=== PATIENT | female | born 1940 | race Caucasian/White ===

== ENCOUNTER 2025-05-01 08:11 | Inpatient (IN) ==
--- NOTE | 2025-05-01 08:50 | Emergency Department Note ---
Impression & Plan Acute hypoxic respiratory failure, Cystitis, URI (upper respiratory infection) ED Provider Note NAME: TRELL SAAB AGE: 84 SEX: F : 1940 ARRIVES VIA: Ambulance INFORMANT: Patient, ED PROVIDER(S): Leah Sexton MD CHIEF COMPLAINT: Shortness of breath, cough HPI: This is a an 84-year-old male female presenting for shortness of breath and cough. Patient noted feeling ill over the past 2 days with a cough and shortness of breath. She had a fever at home prior to arrival. She given Tylenol. She was reported to be hypoxic to 85% on room air as per EMS. She reports feeling better at this time after receiving oxygen. She reports no nausea or vomiting. No chest pain. No pleurisy. ROS: See above HPI for pertinent positives & negatives. A total of 10 systems reviewed and were otherwise negative. PAST MEDICAL HISTORY: See Below PAST SURGICAL HISTORY: See Below FAMILY HISTORY: See Below SOCIAL HISTORY: See Below HOME MEDICATIONS: See Below ALLERGIES: See Below VITALS: See Below PHYSICAL EXAMINATION: General: resting comfortably in no acute distress Head: Normocephalic and atraumatic Eyes: Normal inspection, extraocular muscles intact Ear, nose, throat: Normal external exam Neck: Normal range of motion Respiratory: lungs clear to auscultation bilaterally Cardiovascular: Regular rate/rhythm, no murmur GI: soft, nontender, no guarding or rebound Extremities: nontender, moves all extremities Neuro: The patient awake and alert, appropriately conversive, no focal deficits, symmetric faces Skin: Warm, dry, and intact MEDICAL DECISION MAKING: This is a pleasant 84-year-old male presenting for shortness of breath and UTI symptoms. Patient notes that she has been feeling ill with cough and shortness of breath. She reports a fever at home. She think she may have a UTI due to dysuria. Will do screening workup, x-ray, upper respiratory panel - Blood work reviewed without significant leukocytosis, anemia or electrolyte disturbance. - Upper respiratory panel negative - Urinalysis positive for UTI. Will give cefepime for this based on discussion with pharmacist/previous culture data - Patient's chest x-ray unrevealing. Hypoxia without clear cause. Will proceed to CTA to rule out PE due to shortness of breath - CTA currently negative. Patient made aware of her chronic incidental findings and need for follow-up with PCP for further imaging - Will with the patient for significant hypoxia, UTI - Care discussed with Dr. Fan for admission Differential diagnosis: Pneumonia, URI, sepsis, cystitis Diagnostics interpreted by me: ECG: ECG independently interpreted by me with normal sinus rhythm, rate of 92, normal axis, normal NM, normal QRS, normal QTc, no ST segment elevations consistent with STEMI criteria Cardiac Monitoring: An order was placed for continuous cardiac monitoring. The monitor shows a rate of 82 with sinus rhythm. Past Med/Surg History Problem List (Updated 04/17/25 @ 00:09 by S[employer] Daemcece) URI (upper respiratory infection) (Acute) Cystitis (Acute) DM type 2 (diabetes mellitus, type 2) Acute hypoxic respiratory failure (Acute) Sepsis (Acute) Acute pyelonephritis (Acute) Acute exacerbation of chronic obstructive airways disease (Acute) Overactive bladder Nocturia History of adenomatous polyp of colon (Chronic) "colonoscopy 09/13/13 tubular adenoma ascending colon" Constipation Status post lumbar surgery (Chronic) "[facility] 12/23/11 Dr. Nesbitt lumbar decompression + fusion" On 09/05/13 17:11 Marty Carolina wrote "[facility] Dr. Nesbitt 12/23/11 lumbar decompression + fusion" Status post cataract extraction (Chronic) Status post dilatation and curettage (Chronic) Status post hysterectomy (Chronic) Status post total knee replacement (Chronic) Medical History (Updated 05/01/25 @ 15:17 by Leah Sexton MD) Neck pain Social History Smoking Status: Former smoker Tobacco Type: Cigarettes Do You Dip or Chew Tobacco: No; Hx Alcohol Use: No Hx Substance Use: No Preferred Language: Greek Communication Ability: Effective Sports Agent Required: No Beliefs That Will Affect Care: None Current Living Situation: Assisted Current Living Situation Comment: [place] care resident Feels Safe at Home: Yes Assistive Devices: Scooter/Electric Scooter and Walker Allergies Allergies Allergy/AdvReac Type Severity Reaction Status Date / Time bee venom protein (honey bee) Allergy Severe anaphylaxis Verified 04/11/25 18:38 levofloxacin Allergy Severe HIVES AND Verified 04/11/25 18:38 ITCHING,FACE SWELLING Penicillins Allergy Severe PT STATES Verified 04/11/25 18:38 THROAT SWELLS tiotropium Allergy Severe THROAT Verified 04/11/25 18:38 SWELLED adhesive Allergy Mild red skin Verified 04/11/25 18:38 cyclobenzaprine Allergy Mild RASH Verified 04/11/25 18:38 cyclopentolate Allergy Mild rash Verified 04/11/25 18:38 povidone-iodine Allergy Mild rash Verified 04/11/25 18:38 Sulfa (Sulfonamide Allergy Mild RASH Verified 04/11/25 18:38 Antibiotics) amoxicillin Allergy Unknown Unknown Verified 04/11/25 18:38 azithromycin Allergy Unknown Unknown Verified 04/11/25 18:38 Benzodiazepines Allergy Unknown per pt, Verified 04/11/25 18:38 tolerates Ativan fexofenadine Allergy Unknown Unknown Verified 04/11/25 18:38 latex Allergy Unknown doesn't Verified 04/11/25 18:[address] told her so phenylephrine Allergy Unknown UNKNOWN-PER Verified 04/11/25 18:38 HOSPITAL ADMISSION 09/05/13-09/15/13 nitrofurantoin Allergy Anaphylaxis Verified 04/15/25 11:00 [From Macrobid] daptomycin AdvReac Intermediate ABDOMINAL Verified 04/11/25 18:38 PAIN fentanyl AdvReac Intermediate nausea and Verified 04/11/25 18:38 vomiting gabapentin AdvReac Intermediate increased Verified 04/11/25 18:38 pain pentobarbital AdvReac Intermediate SEDATED Verified 04/11/25 18:38 simvastatin AdvReac Intermediate MUSCLE PAIN Verified 04/11/25 18:38 Home Meds Home Medications Medication Instructions Recorded Confirmed valsartan 80 mg tablet 80 mg PO DAILY 08/10/24 04/11/25 Saccharomyces boulardii 250 mg 250 mg PO BID 11/18/24 04/11/25 capsule (Florastor) acetaminophen 325 mg tablet 650 mg PO Q6H PRN PAIN/TEMP >100F 11/18/24 04/11/25 (Tylenol) carboxymethylcellulose sodium 1 % 1 drp ophthalmic (eye) BID 11/18/24 04/11/25 eye liquid gel drops (Refresh Liquigel) docusate sodium 100 mg capsule 100 mg PO DAILY 11/18/24 04/11/25 ergocalciferol (vitamin D2) 50 mcg 50 mcg PO DAILY 11/18/24 04/11/25 (2,000 unit) capsule loperamide 2 mg capsule (Imodium 2 mg PO Q4H PRN Diarrhea 11/18/24 04/11/25 A-D) acetaminophen 650 mg 650 mg PO BIDM 04/11/25 04/11/25 tablet,extended release (Tylenol Arthritis Pain) albuterol sulfate 90 mcg/actuation 2 puff inhalation Q6H PRN 04/11/25 04/11/25 aerosol inhaler Shortness Of Breath Or Wheezing aluminum-mag hydroxide-simethicone 60 ml PO Q6H PRN Dyspepsia 04/11/25 04/11/25 200 mg-200 mg-20 mg/5 mL oral susp (No-[place]) bacitracin 500 unit/gram topical 1 applic topical DAILY 04/11/25 04/11/25 ointment calcium carbonate 1,000 mg PO Q1H PRN Indigestion 04/11/25 04/11/25 carboxymethylcellulose sodium 1 % 2 drp OPB Q2H PRN Dry Eyes 04/11/25 04/11/25 eye drops (Artificial Tears (carboxymethylcellulose)) clotrimazole 1 % topical cream 1 applic topical BID 04/11/25 04/11/25 epinephrine 0.3 mg/0.3 mL 0.3 mg IM DIRECTED PRN Allergic 04/11/25 04/11/25 injection, auto-injector (EpiPen) Reaction fluticasone furoate 27.5 2 spray intranasal DAILY 04/11/25 04/11/25 mcg/actuation nasal spray,suspension glimepiride 4 mg tablet 4 mg PO BIDM 04/11/25 04/11/25 guaifenesin 600 mg tablet, 600 mg PO Q12H 04/11/25 04/11/25 extended release 12 hr (Mucinex) menthol 0.8 % topical powder (Gold 1 ea topical BID 04/11/25 04/11/25 Avendano Medicated Body) mineral oil 2 ea miscellaneous DIRECTED 04/11/25 04/11/25 mupirocin 2 % topical ointment 1 applic topical TID 04/11/25 04/11/25 ondansetron 4 mg disintegrating 4 mg PO Q6H PRN NAUSEA/VOMITING 04/11/25 04/11/25 tablet phenol 1.4 % mucosal aerosol spray 2 spray mucous membrane Q8H PRN 04/11/25 04/11/25 Sore Throat polyethylene glycol 3350 17 17 g PO DAILY 04/11/25 04/11/25 gram/dose oral powder (Miralax) saliva stimulant comb. no.3 2 spray mucous membrane Q1H PRN 04/11/25 04/11/25 (Biotene Moisturizing Mouth Dry Mouth mucosal spray) semaglutide 0.25 mg or 0.5 mg (2 0.5 mg subcut WK 04/11/25 04/11/25 mg/3 mL) subcutaneous pen injector (Ozempic) soap 1 ea topical QPM 04/11/25 04/11/25 tramadol 50 mg tablet 50 mg PO Q4H PRN PAIN/SEVERE 04/11/25 04/11/25 triamcinolone acetonide 0.1 % 1 applic topical BID 04/11/25 04/11/25 topical cream vitamin E 268 mg (400 unit) capsule 268 mg PO DAILY 04/11/25 04/11/25 Previous Rx's Medication Instructions Recorded vibegron 75 mg tablet (Gemtesa) 75 mg PO DAILY #30 tabs 09/10/24 diclofenac sodium 1 % topical gel 4 g EXT QID Apply to right side of 04/15/25 (Voltaren Arthritis Pain) neck #100 grams Results & Data (ED) Vital Signs Vital Signs - 24 hr 05/01/25 08:17 05/01/25 08:23 05/01/25 08:30 Temperature 37.2 C Temperature Source Oral Pulse Rate 81 87 83 Pulse Rate from SpO2 Sensor Pulse Rhythm Regular Respiratory Rate 20 22 Respiratory Effort / Characteristics Non-Labored Spontaneous Respiratory Depth Normal Respiratory Pattern Regular Blood Pressure 116/62 Blood Pressure Mean 80 Pulse Oximetry 85 L 95 Oxygen Delivery Method Room Air Nasal Cannula Oxygen Flow Rate 4 Sepsis Recent Fever Within 48 Hours Yes Sepsis New/Unexplained Change in Mental Status No Sepsis Action Taken by Nursing No Action Required 05/01/25 08:42 05/01/25 09:01 05/01/25 09:30 Temperature Temperature Source Pulse Rate 90 82 75 Pulse Rate from SpO2 Sensor Pulse Rhythm Respiratory Rate 17 18 18 Respiratory Effort / Characteristics Respiratory Depth Respiratory Pattern Blood Pressure 123/71 138/72 149/76 H Blood Pressure Mean 91 103 108 Pulse Oximetry 96 95 93 Oxygen Delivery Method Nasal Cannula Nasal Cannula Nasal Cannula Oxygen Flow Rate 4 4 4 Sepsis Recent Fever Within 48 Hours Sepsis New/Unexplained Change in Mental Status Sepsis Action Taken by Nursing 05/01/25 10:01 05/01/25 10:51 05/01/25 11:30 Temperature Temperature Source Pulse Rate 81 82 89 Pulse Rate from SpO2 Sensor Pulse Rhythm Respiratory Rate 17 13 17 Respiratory Effort / Characteristics Respiratory Depth Respiratory Pattern Blood Pressure 138/78 136/66 Blood Pressure Mean 113 95 Pulse Oximetry 100 99 99 Oxygen Delivery Method Nasal Cannula Nasal Cannula Nasal Cannula Oxygen Flow Rate 4 4 4 Sepsis Recent Fever Within 48 Hours Sepsis New/Unexplained Change in Mental Status Sepsis Action Taken by Nursing 05/01/25 11:30 05/01/25 12:00 05/01/25 12:31 Temperature Temperature Source Pulse Rate 80 78 77 Pulse Rate from SpO2 Sensor Pulse Rhythm Respiratory Rate 17 15 Respiratory Effort / Characteristics Respiratory Depth Respiratory Pattern Blood Pressure 136/66 132/79 Blood Pressure Mean 95 97 Pulse Oximetry 99 99 Oxygen Delivery Method Nasal Cannula Oxygen Flow Rate 4 Sepsis Recent Fever Within 48 Hours Sepsis New/Unexplained Change in Mental Status Sepsis Action Taken by Nursing 05/01/25 12:31 05/01/25 13:01 05/01/25 13:31 Temperature Temperature Source Pulse Rate 84 78 72 Pulse Rate from SpO2 Sensor 83 Pulse Rhythm Respiratory Rate 14 17 13 Respiratory Effort / Characteristics Respiratory Depth Respiratory Pattern Blood Pressure 169/87 H 170/91 H 156/113 H Blood Pressure Mean 125 125 125 Pulse Oximetry 100 100 100 Oxygen Delivery Method Nasal Cannula Nasal Cannula Nasal Cannula Oxygen Flow Rate 4 4 4 Sepsis Recent Fever Within 48 Hours Sepsis New/Unexplained Change in Mental Status Sepsis Action Taken by Nursing 05/01/25 14:30 Temperature Temperature Source Pulse Rate 82 Pulse Rate from SpO2 Sensor Pulse Rhythm Respiratory Rate 20 Respiratory Effort / Characteristics Respiratory Depth Respiratory Pattern Blood Pressure 119/88 Blood Pressure Mean 111 Pulse Oximetry 99 Oxygen Delivery Method Nasal Cannula Oxygen Flow Rate 4 Sepsis Recent Fever Within 48 Hours Sepsis New/Unexplained Change in Mental Status Sepsis Action Taken by Nursing Laboratory Data 05/01/25 08:30 05/01/25 08:30 Lab Results 05/01/25 05/01/25 Range/Units 08:30 11:33 WBC 8.50 (4.8-10.8) K/ul RBC 4.56 (4.20-5.40) M/uL Hgb 14.0 (12.0-16.0) g/dL Hct 44.0 (37.0-47.0) % MCV 96.5 (80.0-100.0) fL MCH 30.7 (25.0-34.0) pg MCHC 31.8 L (32.0-36.0) g/dL RDW Std Deviation 50.4 H (36.4-46.3) fL RDW Coeff of Yvonne 14.3 (11.5-14.5) % Plt Count 198 (130-400) K/uL MPV 9.7 (9.4-12.4) fL Immature Gran % (Auto) 0.5 % Neut % (Auto) 74.7 % Lymph % (Auto) 18.5 % [place] % (Auto) 5.8 % Eos % (Auto) 0.0 % Baso % (Auto) 0.5 % Neut # (Auto) 6.36 (1.40-6.50) K/uL Lymph # (Auto) 1.57 (1.20-3.40) K/uL [place] # (Auto) 0.49 (0.11-0.59) K/uL Eos # (Auto) 0.00 (0.00-0.50) K/uL Baso # (Auto) 0.04 (0.00-0.20) K/uL Immature Gran # (Auto) 0.04 (0.01-0.20) K/uL Sodium 139 (136-145) mmol/L Potassium 4.2 (3.5-5.1) mmol/L Chloride 99 (98-107) mmol/L Carbon Dioxide 33 H (21-32) mmol/L Anion Gap 7 (3-11) BUN 12 (6-23) mg/dl Creatinine 0.69 (0.6-1.2) mg/dl Est Cr Clr Drug Dosing 77.6 ml/min eGFR 86.06 BUN/Creatinine Ratio 17.4 (10-20) Glucose 86 (70-99(Fasting)) mg/dl Lactate 1.6 (0.4-2.0) mmol/L Calcium 8.4 L (8.6-10.3) mg/dl Magnesium 1.8 (1.7-2.4) mg/dl Total Bilirubin 0.7 (0.2-1.0) mg/dl Direct Bilirubin 0.1 (0-0.2) mg/dl AST 16 (13-39) U/L ALT 11 (7-52) U/L Alkaline Phosphatase 90 (34-104) U/L Troponin I High Sens 14.7 H (0-14) pg/ml Total Protein 6.6 (6.0-8.3) gm/dl Albumin 3.6 (3.4-5.0) gm/dl Procalcitonin 0.03 (0-0.5) ng/ml Urine Color Yellow Urine Appearance Cloudy A (Clear) Urine pH 5.5 (4.5-7.5) Ur Specific [place] 1.015 (1.000-1.030) Urine Protein Negative (Negative) Urine Glucose (UA) Negative (Negative) Urine Ketones Negative (Negative) Urine Blood Negative (Negative) Urine Nitrite Negative (Negative) Urine Bilirubin Negative (Negative) Urine Urobilinogen Negative (Negative) Ur Leukocyte Esterase 3+ H (Negative) Urine WBC (Auto) >50 H (0-5) /hpf Urine RBC (Auto) 0-2 (0-2) /hpf U Hyaline Cast (Auto) 3-5 H (0-2) /lpf U Epithel Cells (Auto) 0-2 (0-2) /hpf Urine Bacteria (Auto) 2+ H (None Seen) Urine Comment Adenovirus (PCR) Not Detected (NotDetected) B. pertussis DNA (PCR) Not Detected (NotDetected) B.parapertussis DNA PCR Not Detected (NotDetected) C. pneumoniae DNA (PCR) Not Detected (NotDetected) Coronavirus OC43 (PCR) Not Detected (NotDetected) Coronavirus HKU1 (PCR) Not Detected (NotDetected) Coronavirus 229E (PCR) Not Detected (NotDetected) SARS-CoV-2 (PCR) Not Detected (NotDetected) Coronavirus NL63 (PCR) Not Detected (NotDetected) Human Metapneumovir PCR Not Detected (NotDetected) Influenza Type A (PCR) Not Detected (NotDetected) Influenza Type B (PCR) Not Detected (NotDetected) M. pneumoniae (PCR) Not Detected (NotDetected) Parainfluenza 1 (PCR) Not Detected (NotDetected) Parainfluenza 2 (PCR) Not Detected (NotDetected) Parainfluenza 3 (PCR) Not Detected (NotDetected) Parainfluenza 4 (PCR) Not Detected (NotDetected) RSV (PCR) Not Detected (NotDetected) Entero/Rhino (PCR) Not Detected (NotDetected) Administered Medications Discontinued Medications Cefepime HCl (Maxipime 2000mg) 2,000 mg in 20 mls @ 5 mls/min IV ONE ONE Stop: 05/01/25 13:03 Last Admin: 05/01/25 13:23 Dose: 5 mls/min Documented By: ECS Ioversol (Optiray 320 125ml) 119 ml IV ONCE ONE Stop: 05/01/25 11:11 Last Admin: 05/01/25 11:10 Dose: 119 ml Documented By: JAMIE Imaging Data Radiologist's Impression: Chest X-Ray 05/01/25 08:19 HISTORY: Sepsis TECHNIQUE: Portable AP radiograph of the chest. COMPARISON: Chest radiographs dated 04/12/2025. FINDINGS: environmental monitoring specialist leads overlie the chest. No focal lung consolidation. No pneumothorax or effusion.Top normal heart size. Left-sided aortic arch containing atherosclerotic calcification. Midline trachea. No acute osseous abnormality. Extensive spinal fusion hardware. IMPRESSION: No acute cardiopulmonary findings. Electronically signed by Marty Goddard 05-01-2025 09:20 AM Chest CTA 05/01/25 10:18 HISTORY: Shortness of breath and chest pain TECHNIQUE: CT angiography of the chest was performed with contrast. Coronal and sagittal 3D MIP reconstructions are provided. COMPARISON: Chest CT with contrast dated 04/11/2025. FINDINGS: Lungs: Mild atelectasis at the lung bases. No focal consolidation concerning for pneumonia. No pneumothorax or effusion. The central tracheobronchial tree is patent. Heart/Mediastinum: Normal heart size. No pericardial effusion. Dense mitral annular calcification. Mild aortic valvular calcification. 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 2.1 cm nodule extending inferiorly from the thyroid isthmus requires further evaluation with ultrasound. Thoracic esophagus is unremarkable. Small hiatal hernia. Vasculature: Evaluation of the segmental and subsegmental pulmonary arteries is limited by respiratory motion artifact. No evidence of acute pulmonary embolism within the limitations of the study. Mildly dilated main pulmonary artery measuring 3.6 cm in diameter, which could be seen with pulmonary arterial hypertension. Mildly dilated ascending thoracic aorta measuring 4.1 cm in diameter on series 2 image 65. Mild atherosclerotic vascular disease involving the aorta and arch vessels. Soft Tissues: Soft tissues of the chest wall appear unremarkable. Upper Abdomen: Cortical cyst along the superior pole of the left kidney measuring 4.3 cm in diameter is partially imaged. The included upper abdomen is otherwise unremarkable. Bones: Degenerative changes of the shoulders and spine. Partially imaged lumbar and cervical fusion hardware. No acute osseous abnormality. IMPRESSION: * No evidence of acute pulmonary embolism. * Mildly dilated main pulmonary artery, which could be seen with pulmonary arterial hypertension. * Mildly dilated ascending thoracic aorta measuring 4.1 cm in diameter. 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 Aortic valvular and mitral annular calcification. * 2.1 cm nodule extending inferiorly from the thyroid isthmus. Further evaluation is recommended with nonemergent thyroid ultrasound. * Additional chronic and/or incidental findings as detailed above. ACT 112: Positive. There are findings on this exam that require communication between the performing entity and the patient following Patient Test Result Information Act ([place] ACT 112) guidelines. Electronically signed by Marty Goddard 05-01-2025 11:27 AM Discharge Plan Visit Data Chief Complaint: Illness Stated Complaint: uti, sob ED Provider: Leah Sexton Discharge Problem: Acute hypoxic respiratory failure, Cystitis, URI (upper respiratory infection) Patient Disposition: Against Medical Advice Condition: Fair Forms Stand Alone Forms: [facility] [employer] Prescriptions Prescriptions: No Action valsartan 80 mg tablet 80 mg PO DAILY Gemtesa 75 mg tablet 75 mg PO DAILY Qty: 30 4RF docusate sodium 100 mg capsule 100 mg PO DAILY ergocalciferol (vitamin D2) 50 mcg (2,000 unit) capsule 50 mcg PO DAILY Saccharomyces boulardii [Florastor] 250 mg capsule 250 mg PO BID loperamide [Imodium A-D] 2 mg capsule 2 mg PO Q4H PRN (Reason: Diarrhea) carboxymethylcellulose sodium [Refresh Liquigel] 1 % drops, liquid gel 1 drp ophthalmic (eye) BID acetaminophen [Tylenol] 325 mg tablet 650 mg PO Q6H MDD 3 GRAMS APAP/24 HOURS PRN (Reason: PAIN/TEMP >100F) bacitracin 500 unit/gram Ointment 1 applic TOPICAL DAILY Rx Instructions: RIGHT ACHILLES AREA, CLEANSE WITH NSS, APPLY BACITRACIN, COVER WITH DRY DRESSING tramadol 50 mg Tablet 50 mg PO Q4H PRN (Reason: PAIN/SEVERE) triamcinolone acetonide 0.1 % Cream 1 applic TOPICAL BID Rx Instructions: APPLY TO BILATERAL LEGS acetaminophen [Tylenol Arthritis Pain] 650 mg Tablet Extended Release 650 mg PO BIDM MDD 3 GRAMS APAP/24 HOURS Rx Instructions: 0430 & 1630 mineral oil Oil 2 ea miscellaneous DIRECTED Rx Instructions: PUT 2 DRPS IN BOTH EARS EVERY 3RD DAY OF THE MONTH. glimepiride 4 mg Tablet 4 mg PO BIDM calcium carbonate 500 mg calcium (1,250 mg) Tablet,Chewable 1,000 mg PO Q1H PRN (Reason: Indigestion) mupirocin 2 % Ointment 1 applic TOPICAL TID Rx Instructions: APPLY TO ABD FOLDS alum-mag hydroxide-simeth [No-Lanta] 200-200-20 mg/5 mL Suspension 60 ml PO Q6H PRN (Reason: Dyspepsia) Rx Instructions: administer between meals and at bedtime epinephrine [EpiPen] 0.3 mg/0.3 mL Auto-Injector 0.3 mg IM DIRECTED PRN (Reason: Allergic Reaction) polyethylene glycol 3350 [Miralax] 17 gram/dose Powder 17 g PO DAILY albuterol sulfate 90 mcg/actuation Hfa Aerosol Inhaler 2 puff INHALATION Q6H PRN (Reason: Shortness Of Breath Or Wheezing) ondansetron 4 mg Tablet,Disintegrating 4 mg PO Q6H PRN (Reason: NAUSEA/VOMITING) clotrimazole 1 % Cream 1 applic TOPICAL BID Rx Instructions: APPLY TO ABD FOLDS vitamin E 268 mg (400 unit) Capsule 268 mg PO DAILY phenol 1.4 % Aerosol,[place] 2 spray MUCOUS MEMBRANE Q8H PRN (Reason: Sore Throat) soap Shampoo 1 ea TOPICAL QPM Rx Instructions: CLEANSE BOTH EYE LIDS fluticasone furoate 27.5 mcg/actuation [place],Suspension 2 spray INTRANASAL DAILY Rx Instructions: into each nostril Biotene Moisturizing Mouth [place],Non-Aerosol 2 spray MUCOUS MEMBRANE Q1H PRN (Reason: Dry Mouth) Rx Instructions: SELF ADMINISTRATION guaifenesin [Mucinex] 600 mg Tablet Extended Release 12hr 600 mg PO Q12H Artificial Tears (cmc) 1 % Drops 2 drp OPB Q2H PRN (Reason: Dry Eyes) Gold Avendano Medicated Body 0.8 % Powder 1 ea TOPICAL BID Rx Instructions: APPLY TO GROIN FOR RASH, MAY KEEP AT BEDSIDE. Ozempic 0.25 mg or 0.5 mg (2 mg/3 mL) Pen Injector 0.5 mg SUBCUT WK Rx Instructions: THURSDAYS diclofenac sodium [Voltaren Arthritis Pain] 1 % Gel 4 g EXT QID Qty: 100 0RF Referrals Referrals: Dwayne Leon III, MD [Primary Care Provider] - Discharge Problem: URI (upper respiratory infection) Qualifiers: URI type: unspecified viral URI Qualified Code(s): J06.9 - Acute upper respiratory infection, unspecified
[2025-05-01 09:02] LABS: Hematocrit (blood only) 44.0 % (37.0-47.0); Hemoglobin 14.0 g/dL (12.0-16.0); Immature Granulocytes # (auto) 0.04 K/uL (0.01-0.20); Immature Granulocytes % (auto) 0.5 %; Mean Corpuscular Hemoglobin 30.7 pg (25.0-34.0); Mean Corpuscular Volume 96.5 fL (80.0-100.0); Platelet Count 198 K/uL (130-400); RDW Standard Deviation 50.4 fL (36.4-46.3); Red Blood Count 4.56 M/uL (4.20-5.40); White Blood Count 8.50 K/ul (4.8-10.8)
[2025-05-01 09:19] LABS: Alanine Aminotransferase 11.0 U/L (7-52); Albumin Level 3.6 gm/dl (3.4-5.0); Alkaline Phosphatase 90.0 U/L (34-104); Anion Gap 7.0 (3-11); Bilirubin,Total 0.7 mg/dl (0.2-1.0); Blood Urea Nitrogen 12.0 mg/dl (6-23); Calcium 8.4 mg/dl (8.6-10.3); Carbon Dioxide 33.0 mmol/L (21-32); Chloride 99.0 mmol/L (98-107); Creatinine Clr Calc Pharmacy 77.6 ml/min; Glucose 86.0 mg/dl (70-99(Fasting)); Magnesium 1.8 mg/dl (1.7-2.4); Potassium 4.2 mmol/L (3.5-5.1); Sodium 139.0 mmol/L (136-145); Total Protein 6.6 gm/dl (6.0-8.3)
--- NOTE | 2025-05-01 09:20 | XRay Report ---
HISTORY: Sepsis TECHNIQUE: Portable AP radiograph of the chest. COMPARISON: Chest radiographs dated 04/12/2025. FINDINGS: traffic monitor specialist leads overlie the chest. No focal lung consolidation. No pneumothorax or effusion.Top normal heart size. Left-sided aortic arch containing atherosclerotic calcification. Midline trachea. No acute osseous abnormality. Extensive spinal fusion hardware. IMPRESSION: No acute cardiopulmonary findings. Electronically signed by Marty Goddard 05-01-2025 09:20 AM
[2025-05-01 10:07] LABS: Chlamydia pneumoniae PCR Not Detected (NotDetected); Coronavirus 229E PCR Not Detected (NotDetected); Coronavirus CoV-2 (COVID19)PCR Not Detected (NotDetected); Coronavirus HKU1 PCR Not Detected (NotDetected); Coronavirus NL63 PCR Not Detected (NotDetected); Coronavirus OC43PCR Not Detected (NotDetected); Human Metapneumovirus PCR Not Detected (NotDetected); Parainfluenza Virus 1 PCR Not Detected (NotDetected); Parainfluenza Virus 2 PCR Not Detected (NotDetected); Parainfluenza Virus 3 PCR Not Detected (NotDetected); Parainfluenza Virus 4 PCR Not Detected (NotDetected); Respiratory Syncytial VirusPCR Not Detected (NotDetected); Rhinovirus/Enterovirus PCR Not Detected (NotDetected)
[2025-05-01] MEDS: OPTIRAY 320 125ml IV ONE (11:10)
--- NOTE | 2025-05-01 11:27 | CT Scan Report ---
HISTORY: Shortness of breath and chest pain TECHNIQUE: CT angiography of the chest was performed with contrast. Coronal and sagittal 3D MIP reconstructions are provided. COMPARISON: Chest CT with contrast dated 04/11/2025. FINDINGS: Lungs: Mild atelectasis at the lung bases. No focal consolidation concerning for pneumonia. No pneumothorax or effusion. The central tracheobronchial tree is patent. Heart/Mediastinum: Normal heart size. No pericardial effusion. Dense mitral annular calcification. Mild aortic valvular calcification. 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 2.1 cm nodule extending inferiorly from the thyroid isthmus requires further evaluation with ultrasound. Thoracic esophagus is unremarkable. Small hiatal hernia. Vasculature: Evaluation of the segmental and subsegmental pulmonary arteries is limited by respiratory motion artifact. No evidence of acute pulmonary embolism within the limitations of the study. Mildly dilated main pulmonary artery measuring 3.6 cm in diameter, which could be seen with pulmonary arterial hypertension. Mildly dilated ascending thoracic aorta measuring 4.1 cm in diameter on series 2 image 65. Mild atherosclerotic vascular disease involving the aorta and arch vessels. Soft Tissues: Soft tissues of the chest wall appear unremarkable. Upper Abdomen: Cortical cyst along the superior pole of the left kidney measuring 4.3 cm in diameter is partially imaged. The included upper abdomen is otherwise unremarkable. Bones: Degenerative changes of the shoulders and spine. Partially imaged lumbar and cervical fusion hardware. No acute osseous abnormality. IMPRESSION: * No evidence of acute pulmonary embolism. * Mildly dilated main pulmonary artery, which could be seen with pulmonary arterial hypertension. * Mildly dilated ascending thoracic aorta measuring 4.1 cm in diameter. 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 Aortic valvular and mitral annular calcification. * 2.1 cm nodule extending inferiorly from the thyroid isthmus. Further evaluation is recommended with nonemergent thyroid ultrasound. * Additional chronic and/or incidental findings as detailed above. ACT 112: Positive. There are findings on this exam that require communication between the performing entity and the patient following Patient Test Result Information Act ([place] ACT 112) guidelines. Electronically signed by Marty Goddard 05-01-2025 11:27 AM
[2025-05-01 11:56] LABS: Appearance Urine Cloudy (Clear); Bacteria Urine Automated 2+ (None Seen); Epithelial Cell Urine Auto 0-2 /hpf (0-2); Glucose Urine UA Negative (Negative); RBC Urine Automated 0-2 /hpf (0-2); WBC Urine Automated >50 /hpf (0-5)
[2025-05-01] MEDS: CEFEPIME 2000MG 2,000 MG/20 ML SYR IV ONE (13:23)
[2025-05-01] MEDS ORDERED: ACETAMINOPHEN 325 MG TAB PO PRN (13:34)
[2025-05-01] MEDS ORDERED: ALBUTEROL HFA 8 GM INHALER INH PRN (13:55)
[2025-05-01] MEDS ORDERED: ARTIFICIAL TEARS OP PRN (14:09)
[2025-05-01] MEDS: guaiFENesin 600 MG TABCR PO SCH (15:24)
[2025-05-02] MEDS: CEFEPIME 2000MG 2,000 MG/20 ML SYR IV SCH (01:18)
[2025-05-02] MEDS: VALSARTAN 80 MG TAB PO SCH (08:28)
[2025-05-02] MEDS: CHOLECALCIFEROL 25 MCG (1000 UNITS) TAB PO SCH (08:28)
[2025-05-02] MEDS: BACITRACIN OINT 14 GM TUBE TOP SCH (08:29)
[2025-05-02] MEDS: DOCUSATE SODIUM 100 MG CAP PO SCH (08:30)
[2025-05-02] MEDS: SODIUM CHLOR 7% 4 ML NEB NEB SCH (20:05)
--- NOTE | 2025-05-02 23:05 | Hospitalist Progress Note ---
Date of Service May 02, 2025 Assessment & Plan (1) URI (upper respiratory infection): (2) Acute hypoxic respiratory failure: (3) DM type 2 (diabetes mellitus, type 2): Plan Acute hypoxic respiratory failure in an 84 yo female Admit to medical Oxygen requirement has improved, now on 1.5-2 liters On Albuterol. Continue cefepime Imaging negative Asymptomatic Bacteruria will see urine culture: showing E. faecalis DM-II - Last hgb A1c from 03/09/2025 was 6.6% - will closely monior her fasting blood sugars Admission and Anticipated Discharge Date Admission Date: May 01, 2025 Subjective Patient reports breathing slightly better today. She states however she is unsure how to completely gauge that as she has been in bed so far. She will try to get out of bed later today. Physical Exam Constitutional: WD/WN, vitals as above Neck: trachea midline, no thyromegaly Respiratory: normal respiratory effort, lungs clear to auscultation Cardiovascular: RRR, no murmur, no edema Gastrointestinal (Abdomen): normal bowel sounds, soft, nontender, no hepatosplenomegaly Skin: no rashes, warm and dry Psychiatric: A+Ox3, euthymic affect Results & Data Results & Data Vital Signs (Past 12 Hours) Vital Signs Temp Pulse Resp BP Pulse Ox O2 Del Method O2 Flow Rate 05/02/25 23:00 36.4 C L 98 H 18 162/77 H 96 Nasal Cannula 4 05/02/25 20:07 95 H 98 Nasal Cannula 4 05/02/25 20:07 79 18 98 Nasal Cannula 4 05/02/25 15:32 36.7 C 72 16 125/62 99 Nasal Cannula 05/02/25 13:49 36.6 C 72 16 114/72 98 Nasal Cannula 4 PG Care Time/CCT Total # of Minutes Spent Total Time Spent with Patient: Total time spent is greater than 50% in coordination of care (as documented) at patient's floor/unit and/or counseling patient: Coding Level of Care Code 04699 SUB INP/OBS CARE 2/35MIN Diagnoses URI (upper respiratory infection) J06.9 URI type: unspecified viral URI Acute hypoxic respiratory failure J96.01 DM type 2 (diabetes mellitus, type 2) E11.9 (1) URI (upper respiratory infection) URI type: unspecified viral URI Qualified Code(s): J06.9 - Acute upper respiratory infection, unspecified
[2025-05-03 06:18] LABS: Base Excess VBG 10.2 mEq/L; HCO3 VBG 38 mmol/L; Oxygen Saturation VBG < 60.0 %; PCO2 VBG 64 mmHg (38-50); PO2 VBG 30 mmHg; pH VBG 7.38 (7.36-7.41)
[2025-05-03 06:39] LABS: Hematocrit (blood only) 44.7 % (37.0-47.0); Hemoglobin 13.9 g/dL (12.0-16.0); Immature Granulocytes # (auto) 0.03 K/uL (0.01-0.20); Immature Granulocytes % (auto) 0.4 %; Mean Corpuscular Hemoglobin 30.2 pg (25.0-34.0); Mean Corpuscular Volume 97.0 fL (80.0-100.0); Platelet Count 167 K/uL (130-400); RDW Standard Deviation 50.4 fL (36.4-46.3); Red Blood Count 4.61 M/uL (4.20-5.40); White Blood Count 7.23 K/ul (4.8-10.8)
[2025-05-03 07:04] LABS: Anion Gap 7.0 (3-11); Blood Urea Nitrogen 11.0 mg/dl (6-23); Calcium 8.7 mg/dl (8.6-10.3); Carbon Dioxide 34.0 mmol/L (21-32); Chloride 100.0 mmol/L (98-107); Creatinine Clr Calc Pharmacy 75.4 ml/min; Glucose 118.0 mg/dl (70-99(Fasting)); Potassium 3.9 mmol/L (3.5-5.1); Sodium 141.0 mmol/L (136-145)
--- NOTE | 2025-05-03 14:04 | History & Physical Report ---
Date of Service May 01, 2025 Assessment & Plan (1) URI (upper respiratory infection): (2) Acute hypoxic respiratory failure: (3) DM type 2 (diabetes mellitus, type 2): Plan Acute hypoxic respiratory failure in an 84 yo female Admit to medical Patient requires 4 liters nasal cannula On Albuterol. Placed on cefepime Asymptomatic Bacteruria will see urine culture, but will not treat. DM-II - Last hgb A1c from 03/09/2025 was 6.6% - will closely monior her fasting blood sugars Admission and Anticipated Discharge Date Admission Date: May 01, 2025 History of Present Illness Chief Complaint: SOB Primary Care Provider: Dwayne Leon III, MD Patient is an 84 yo female [facility] described below. She comes into the hospital for symptoms of feeling short of breath. She adamantly refuses symptoms of UTI. Patient reports she has been feeling sick for over week. She has been having generalized malaise followed by cough and SOB. She reports a suggestive fever. Patient denies any dysuria, worsening incontinence, or urgency. Given her SOB and hypoxia. Admission was called. Allergies Allergy/AdvReac Type Severity Reaction Status Date / Time bee venom protein (honey bee) Allergy Severe anaphylaxis Verified 04/11/25 18:38 levofloxacin Allergy Severe HIVES AND Verified 04/11/25 18:38 ITCHING,FACE SWELLING Penicillins Allergy Severe PT STATES Verified 04/11/25 18:38 THROAT SWELLS tiotropium Allergy Severe THROAT Verified 04/11/25 18:38 SWELLED adhesive Allergy Mild red skin Verified 04/11/25 18:38 cyclobenzaprine Allergy Mild RASH Verified 04/11/25 18:38 cyclopentolate Allergy Mild rash Verified 04/11/25 18:38 povidone-iodine Allergy Mild rash Verified 04/11/25 18:38 Sulfa (Sulfonamide Allergy Mild RASH Verified 04/11/25 18:38 Antibiotics) amoxicillin Allergy Unknown Unknown Verified 04/11/25 18:38 azithromycin Allergy Unknown Unknown Verified 04/11/25 18:38 Benzodiazepines Allergy Unknown per pt, Verified 04/11/25 18:38 tolerates Ativan fexofenadine Allergy Unknown Unknown Verified 04/11/25 18:38 latex Allergy Unknown doesn't Verified 04/11/25 18:[address] told her so phenylephrine Allergy Unknown UNKNOWN-PER Verified 04/11/25 18:38 HOSPITAL ADMISSION 09/05/13-09/15/13 nitrofurantoin Allergy Anaphylaxis Verified 04/15/25 11:00 [From Macrobid] daptomycin AdvReac Intermediate ABDOMINAL Verified 04/11/25 18:38 PAIN fentanyl AdvReac Intermediate nausea and Verified 04/11/25 18:38 vomiting gabapentin AdvReac Intermediate increased Verified 04/11/25 18:38 pain pentobarbital AdvReac Intermediate SEDATED Verified 04/11/25 18:38 simvastatin AdvReac Intermediate MUSCLE PAIN Verified 04/11/25 18:38 Home Medications Medication Instructions Recorded Confirmed Type valsartan 80 mg tablet 80 mg PO DAILY 08/10/24 04/11/25 History vibegron 75 mg tablet (Gemtesa) 75 mg PO DAILY #30 tabs 09/10/24 04/11/25 Rx Saccharomyces boulardii 250 mg 250 mg PO BID 11/18/24 04/11/25 History capsule (Florastor) acetaminophen 325 mg tablet 650 mg PO Q6H PRN PAIN/TEMP >100F 11/18/24 04/11/25 History (Tylenol) carboxymethylcellulose sodium 1 % 1 drp ophthalmic (eye) BID 11/18/24 04/11/25 History eye liquid gel drops (Refresh Liquigel) docusate sodium 100 mg capsule 100 mg PO DAILY 11/18/24 04/11/25 History ergocalciferol (vitamin D2) 50 mcg 50 mcg PO DAILY 11/18/24 04/11/25 History (2,000 unit) capsule loperamide 2 mg capsule (Imodium 2 mg PO Q4H PRN Diarrhea 11/18/24 04/11/25 History A-D) acetaminophen 650 mg 650 mg PO BIDM 04/11/25 04/11/25 History tablet,extended release (Tylenol Arthritis Pain) albuterol sulfate 90 mcg/actuation 2 puff inhalation Q6H PRN 04/11/25 04/11/25 History aerosol inhaler Shortness Of Breath Or Wheezing aluminum-mag hydroxide-simethicone 60 ml PO Q6H PRN Dyspepsia 04/11/25 04/11/25 History 200 mg-200 mg-20 mg/5 mL oral susp (No-Lanta) bacitracin 500 unit/gram topical 1 applic topical DAILY 04/11/25 04/11/25 History ointment calcium carbonate 1,000 mg PO Q1H PRN Indigestion 04/11/25 04/11/25 History carboxymethylcellulose sodium 1 % 2 drp OPB Q2H PRN Dry Eyes 04/11/25 04/11/25 History eye drops (Artificial Tears (carboxymethylcellulose)) clotrimazole 1 % topical cream 1 applic topical BID 04/11/25 04/11/25 History epinephrine 0.3 mg/0.3 mL 0.3 mg IM DIRECTED PRN Allergic 04/11/25 04/11/25 History injection, auto-injector (EpiPen) Reaction fluticasone furoate 27.5 2 spray intranasal DAILY 04/11/25 04/11/25 History mcg/actuation nasal spray,suspension glimepiride 4 mg tablet 4 mg PO BIDM 04/11/25 04/11/25 History guaifenesin 600 mg tablet, 600 mg PO Q12H 04/11/25 04/11/25 History extended release 12 hr (Mucinex) menthol 0.8 % topical powder (Gold 1 ea topical BID 04/11/25 04/11/25 History Avendano Medicated Body) mineral oil 2 ea miscellaneous DIRECTED 04/11/25 04/11/25 History mupirocin 2 % topical ointment 1 applic topical TID 04/11/25 04/11/25 History ondansetron 4 mg disintegrating 4 mg PO Q6H PRN NAUSEA/VOMITING 04/11/25 04/11/25 History tablet phenol 1.4 % mucosal aerosol spray 2 spray mucous membrane Q8H PRN 04/11/25 04/11/25 History Sore Throat polyethylene glycol 3350 17 17 g PO DAILY 04/11/25 04/11/25 History gram/dose oral powder (Miralax) saliva stimulant comb. no.3 2 spray mucous membrane Q1H PRN 04/11/25 04/11/25 History (Biotene Moisturizing Mouth Dry Mouth mucosal spray) semaglutide 0.25 mg or 0.5 mg (2 0.5 mg subcut WK 04/11/25 04/11/25 History mg/3 mL) subcutaneous pen injector (Ozempic) soap 1 ea topical QPM 04/11/25 04/11/25 History tramadol 50 mg tablet 50 mg PO Q4H PRN PAIN/SEVERE 04/11/25 04/11/25 History triamcinolone acetonide 0.1 % 1 applic topical BID 04/11/25 04/11/25 History topical cream vitamin E 268 mg (400 unit) capsule 268 mg PO DAILY 04/11/25 04/11/25 History diclofenac sodium 1 % topical gel 4 g EXT QID Apply to right side of 04/15/25 Rx (Voltaren Arthritis Pain) neck #100 grams Past Med/Surg History Problem List URI (upper respiratory infection) (Acute) Cystitis (Acute) DM type 2 (diabetes mellitus, type 2) Acute hypoxic respiratory failure (Acute) Sepsis (Acute) Acute pyelonephritis (Acute) Acute exacerbation of chronic obstructive airways disease (Acute) Overactive bladder Nocturia History of adenomatous polyp of colon (Chronic) "colonoscopy 09/13/13 tubular adenoma ascending colon" Constipation Status post lumbar surgery (Chronic) "[facility] 12/23/11 Dr. Nesbitt lumbar decompression + fusion" On 09/05/13 17:11 Marty Carolina wrote "[facility] Dr. Nesbitt 12/23/11 lumbar decompression + fusion" Status post cataract extraction (Chronic) Status post dilatation and curettage (Chronic) Status post hysterectomy (Chronic) Status post total knee replacement (Chronic) Medical History Neck pain Social History Smoking Status: Former smoker Tobacco Type: Cigarettes Second Hand Exposure: No; Do You Dip or Chew Tobacco: No; Tobacco Cessation Education Requested by Patient: Yes Hx Alcohol Use: No Hx Substance Use: No Preferred Language: Luxembourgish Communication Ability: Effective Repairer Veneer Sheet Required: No Beliefs That Will Affect Care: None Current Living Situation: [facility] Current Living Situation Comment: [facility] Other Information That Helps Us Care for You: No Feels Safe at Home: Yes Assistive Devices: Scooter/Electric Scooter and Walker Physical Exam Constitutional: WD/WN, vitals as above Neck: trachea midline, no thyromegaly Respiratory: Rhonchi on Right more than left Cardiovascular: RRR, no murmur, no edema Gastrointestinal (Abdomen): normal bowel sounds, soft, nontender, no hepatosplenomegaly Skin: no rashes, warm and dry Psychiatric: A+Ox3, euthymic affect Results & Data Results & Data Vital Signs (Past 12 Hours) Vital Signs Temp Pulse Resp BP Pulse Ox O2 Del Method O2 Flow Rate 05/03/25 10:32 95 Room Air 05/03/25 07:54 Nasal Cannula 1.5 05/03/25 07:18 89 20 95 Nasal Cannula 1.5 05/03/25 07:14 36.7 C 89 18 128/74 95 Nasal Cannula 1.5 PG Care Time/CCT Total # of Minutes Spent Total Time Spent with Patient: Total time spent is greater than 50% in coordination of care (as documented) at patient's floor/unit and/or counseling patient: Coding Level of Care Code 87996 INT INP/OBS CARE 3/75MIN Diagnoses URI (upper respiratory infection) J06.9 URI type: unspecified viral URI Acute hypoxic respiratory failure J96.01 DM type 2 (diabetes mellitus, type 2) E11.9 (1) URI (upper respiratory infection) URI type: unspecified viral URI Qualified Code(s): J06.9 - Acute upper respiratory infection, unspecified
--- NOTE | 2025-05-03 15:45 | XRay Report ---
XR chest 2V PA/lateral CLINICAL HISTORY: Shortness of breath. COMPARISON STUDY: Chest radiograph and chest CT May 01, 2025. FINDINGS: Postoperative findings within the spine are incidentally noted. Lung volumes are normal. Brigitte ngs are clear. There is no pneumothorax or pleural effusion. Cardiac size is normal. Mediastinal cont ours are normal. There is no evidence for pulmonary edema. IMPRESSION: No acute cardiopulmonary findings. ACT 112: Negative or not required by law. Electronically signed by: Thomas Carrillo M.D. 05/03/2025 3:43 PM
[2025-05-03] MEDS: CEFEPIME 2000MG 2,000 MG/20 ML SYR IV SCH (20:04)
[2025-05-03 20:50] VITALS: RESP 18
--- NOTE | 2025-05-03 23:04 | Hospitalist Progress Note ---
Date of Service May 03, 2025 Assessment & Plan (1) URI (upper respiratory infection): (2) Acute hypoxic respiratory failure: (3) DM type 2 (diabetes mellitus, type 2): Plan Acute hypoxic respiratory failure in an 84 yo female Admit to medical Oxygen requirement has improved, now on room air On Albuterol. Continue cefepime Imaging negative.'Likely discharge in 1-2 days. Asymptomatic Bacteruria urine culture: showing E. faecalis; as patient is clinically improving and elton es any history of dysuria, incontinence and urgency, explained to her that will not treat. She shows understanding. Treating this will likely lead to resistance and not help in the grand scheme of things given that her main and only symptom were respiratory. DM-II - Last hgb A1c from 03/09/2025 was 6.6% - will closely monior her fasting blood sugars Admission and Anticipated Discharge Date Admission Date: May 01, 2025 Subjective Patient reports breathing better today. Physical Exam Constitutional: WD/WN, vitals as above Neck: trachea midline, no thyromegaly Respiratory: normal respiratory effort, lungs clear to auscultation Cardiovascular: RRR, no murmur, no edema Gastrointestinal (Abdomen): normal bowel sounds, soft, nontender, no hepatosplenomegaly Skin: no rashes, warm and dry Psychiatric: A+Ox3, euthymic affect Results & Data Results & Data Vital Signs (Past 12 Hours) Vital Signs Temp Pulse Resp BP Pulse Ox O2 Del Method 05/03/25 20:35 107 H 18 05/03/25 20:30 36.8 C 119 H 22 160/81 H 93 Room Air 05/03/25 20:09 89 18 94 Room Air 05/03/25 15:15 37.1 C 83 18 119/68 94 Room Air PG Care Time/CCT Total # of Minutes Spent Total Time Spent with Patient: Total time spent is greater than 50% in coordination of care (as documented) at patient's floor/unit and/or counseling patient: Coding Level of Care Code 79533 SUB INP/OBS CARE 2/35MIN Diagnoses URI (upper respiratory infection) J06.9 URI type: unspecified viral URI Acute hypoxic respiratory failure J96.01 DM type 2 (diabetes mellitus, type 2) E11.9 (1) URI (upper respiratory infection) URI type: unspecified viral URI Qualified Code(s): J06.9 - Acute upper respiratory infection, unspecified
[2025-05-04] MEDS: NYSTATIN POWDER 15GM BTL EXT PRN (05:53)
--- NOTE | 2025-05-04 06:29 | Electrocardiogram Report ---
Test Reason : Blood Pressure : */* mmHG Vent. Rate : 92 BPM Atrial Rate : 92 BPM P-R Int : 172 ms QRS Dur : 80 ms QT Int : 362 ms P-R-T Axes : 53 -17 59 degrees QTcB Int : 447 ms Normal sinus rhythm Low voltage QRS Cannot rule out Anterior infarct (cited on or before 11-Apr-2025) Inferior infarct Abnormal ECG When compared with ECG of 11-Apr-2025 17:27, No significant change was found Confirmed by Gerardo Guerra ([id number]) on 05/04/2025 6:29:32 AM Referred By: REFERRED SELF Confirmed By: Gerardo Guerra
[2025-05-04 07:25] LABS: Hematocrit (blood only) 41.6 % (37.0-47.0); Hemoglobin 13.6 g/dL (12.0-16.0); Mean Corpuscular Hemoglobin 31.0 pg (25.0-34.0); Mean Corpuscular Volume 94.8 fL (80.0-100.0); Platelet Count 158 K/uL (130-400); RDW Standard Deviation 48.6 fL (36.4-46.3); Red Blood Count 4.39 M/uL (4.20-5.40); White Blood Count 6.78 K/ul (4.8-10.8)
[2025-05-04 07:50] LABS: Anion Gap 8.0 (3-11); Blood Urea Nitrogen 10.0 mg/dl (6-23); Calcium 9.0 mg/dl (8.6-10.3); Carbon Dioxide 30.0 mmol/L (21-32); Chloride 101.0 mmol/L (98-107); Creatinine Clr Calc Pharmacy 78.8 ml/min; Glucose 124.0 mg/dl (70-99(Fasting)); Potassium 4.0 mmol/L (3.5-5.1); Sodium 139.0 mmol/L (136-145)
[2025-05-04] MEDS: ENOXAPARIN INJ 40 MG/0.4 ML SYR SQ SCH (08:24)
[2025-05-04] MEDS: ONDANSETRON INJ 2 MG/ML 2 ML VIAL IV PRN (09:08)
--- NOTE | 2025-05-04 09:23 | Hospitalist Progress Note ---
Date of Service May 04, 2025 Assessment & Plan (1) URI (upper respiratory infection): (2) Acute hypoxic respiratory failure: (3) DM type 2 (diabetes mellitus, type 2): Plan Patient is an 84-year-old female from [facility] with past medical history of COPD (no home O2 use), hx tobacco use but denies current use, hyperlipidemia, DM-II, overactive bladder who was admitted for management of acute hypoxic respiratory failure. #Acute hypoxic respiratory failure - Respiratory biofire negative on arrival. No leukocytosis. CXR on arrival and on 05/03 with no acute cardiopulmonary findings. Chest CTA with no evidence of acute PE, mildly dilated main pulmonary artery (could be seen with pulmonary arterial hypertension) - Initially required 4 L O2 to maintain sat >90%, now weaned off and stable on room air - Continue hypertonic saline nebs, albuterol, Mucinex - Received cefepime x 3 days - Imaging negative. Likely discharge in 1-2 days. #Asymptomatic Bacteruria - History of recurrent UTIs, but currently asymptomatic from a urinary standpoint - Urine culture grew E. faecalis. Blood cultures negative > 48 hours - As patient is clinically improving and denies any history of dysuria, incontinence and urgency, explained to her that will not treat. She shows understanding. Treating this will likely lead to resistance and not help in the grand scheme of things given that her main and only symptom were respiratory #DM-II - Last hgb A1c from 02/2025 was 6.6% - Home regimen of Ozempic, glimepiride - hold while inpatient - Will closely monitor her fasting blood sugars #Hypertensioncontinue valsartan 80 mg daily #Chronic left hip and left lower extremity pain Tylenol PRN, tramadol 50 mg Q4H PRN severe pain #Dilated ascending thoracic aorta - Chest CT notes mildly dilated ascending thoracic aorta measuring 4.1 cm recommend annual aortic imaging with echocardiography, CT, or MR angiography #Thyroid nodule - Chest CTA incidentally noted a 2.1 cm nodule extending inferiorly from the thyroid isthmus recommend nonemergent thyroid ultrasound for further evaluation in outpatient setting VTE PPx: Lovenox Dispo: Eventual return back to [facility], where she is a resident. Resumed home tramadol Ordered Zofran Admission and Anticipated Discharge Date Admission Date: May 01, 2025 Results & Data Results & Data Vital Signs (Past 12 Hours) Vital Signs Temp Pulse Resp BP Pulse Ox O2 Del Method 05/04/25 07:33 97.7 F 89 18 142/80 H 91 Room Air 05/03/25 23:07 97.9 F 79 18 123/77 93 Room Air PG Care Time/CCT Total # of Minutes Spent Total Time Spent with Patient: Total time spent is greater than 50% in coordination of care (as documented) at patient's floor/unit and/or counseling patient: Coding Level of Care Code 32491 SUB INP/OBS CARE 3/50MIN Diagnoses URI (upper respiratory infection) J06.9 URI type: unspecified viral URI Acute hypoxic respiratory failure J96.01 DM type 2 (diabetes mellitus, type 2) E11.9 (1) URI (upper respiratory infection) URI type: unspecified viral URI Qualified Code(s): J06.9 - Acute upper respiratory infection, unspecified
[2025-05-04 14:29] VITALS: BP 123/76; PULSE 88; TEMP 97.9; O2SAT 93
--- NOTE | 2025-05-04 15:49 | Discharge Summary ---
Discharge Summary Date of Service May 04, 2025 Principal Dx & Hospital Course #1 = Principal Diagnosis (1) URI (upper respiratory infection): (2) Acute hypoxic respiratory failure: (3) DM type 2 (diabetes mellitus, type 2): Plan Patient is an 84-year-old female from [facility] with past medical history of COPD (no home O2 use), hx tobacco use but denies current use, hyperlipidemia, DM-II, overactive bladder who was admitted for management of acute hypoxic respiratory failure. #Acute hypoxic respiratory failure - Respiratory biofire negative on arrival. No leukocytosis. CXR on arrival and on 05/03 with no acute cardiopulmonary findings. Chest CTA with no evidence of acute PE, mildly dilated main pulmonary artery (could be seen with pulmonary arterial hypertension) - Initially required 4 L O2 to maintain sat >90%, now weaned off and stable on room air. Unclear what the underlying etiology of her transient hypoxia was - Received cefepime and hypertonic saline nebs x 3 days. Antibiotics discontinued on 05/04 - No indication for continued antibiotics #Asymptomatic Bacteruria - History of recurrent UTIs, but currently asymptomatic from a urinary standpo int - Urine culture grew E. faecalis. Blood cultures negative > 48 hours - As patient is clinically improving and denies any history of dysuria, incontinence and urgency, explained to her that will not treat. She shows understanding. Treating this will likely lead to resistance and not help in the grand scheme of things given that her main and only symptom were respiratory #DM-II - Last hgb A1c from 02/2025 was 6.6% - Home regimen of Ozempic, glimepiride - hold while inpatient - Will closely monitor her fasting blood sugars #Hypertensioncontinue valsartan 80 mg daily #Chronic left hip and left lower extremity pain Tylenol PRN, tramadol 50 mg Q4H PRN severe pain #Trauma induced open wound, right ankle Wound care nurse consulted. Right medial ankle wound for >1 month. Patient declined to follow-up with wound care center in outpatient setting. Continue l ocal wound care #Dilated ascending thoracic aorta - Chest CTA notes mildly dilated ascending thoracic aorta measuring 4.1 cm recommend annual aortic imaging with echocardiography, CT, or MR angiography #Thyroid nodule - Chest CTA incidentally noted a 2.1 cm nodule extending inferiorly from the thyroid isthmus recommend nonemergent thyroid ultrasound for further evaluation in outpatient setting VTE PPx: Lovenox Dispo: Discharged back to Center care 05/04 Notes For Next Care Provider Chest CTA notes mildly dilated ascending thoracic aorta measuring 4.1 cm recommend annual aortic imaging with echocardiography, CT, or MR angiography. Chest CTA incidentally noted a 2.1 cm nodule extending inferiorly from the thyroid isthmus recommend nonemergent thyroid ultrasound for further evaluation in outpatient setting. Medication Changes From Visit No changes made Admission HPI Per Admitting Provider Patient is an 84 yo female wiht H described below. She comes into the hospital for symptoms of feeling short of breath. She adamantly refuses symptoms of UTI. Patient reports she has been feeling sick for over week. She has been having generalized malaise followed by cough and SOB. She reports a suggestive fever. Patient denies any dysuria, worsening incontinence, or urgency. Given her SOB and hypoxia. Admission was called. Discharge Plan Discharge Items Patient Disposition: Transfer [facility] Fac Reason For Visit: UTI, HYPOXIA Discharge Diagnosis: Hypoxia, asymptomatic bacteriuria Condition on Discharge: Fair Activity: Resume your previous activity Non-emergency contact: Primary Care Provider Call non-emergency contact if: you have any medication questions, your symptoms worsen and you have a fever Follow-up/Referrals: Dwayne Leon III, MD [Primary Care Provider] - (Follow-up in 1-2 weeks) Diet: Regular Addtl Attending Provider Instructions: Ebonie, Daniel were admitted to the hospital with hypoxia (low oxygen level). You had multiple imaging studies done including 2 chest x-rays and 1 CT scan of your chest which did not show any acute processes going onno pneumonia, blood clots, fluid in your lungs, etc. Your respiratory panel was negative. You were given IV antibiotics for a possible UTI, however after further conversations, it was suspected to be asymptomatic bacteriuria rather than a true UTI. Asymptomatic bacteriuria is the presence of bacteria in your urine without any signs or symptoms of a UTI. It is unclear what caused your low oxygen level initially. However, now you are stable on room air and have clear lung sounds. Upon discharge from the hospital: * You can use your albuterol inhaler at home for any shortness of breath or wheezing. * Continue your home medications as prescribed. * Follow-up with your PCP in 1-2 weeks. Please return to the hospital if you experience any of the following: Difficulty breathing, shortness of breath, chest pain, heart palpitations, lightheadedness, dizziness, passing out, new or worsening confusion, inability to tolerate oral intake, or any other symptoms concerning for you. It was a pleasure taking care of you while you were in the hospital! Pending Studies at Discharge: No Stand-Alone Forms: My [facility] Skilled Items Patient informed of condition?: Yes DNR: No (Conditional code) Discharge Level of Care: Skilled Communicable Disease: No Discharge Prognosis: Stable Lines: None Urinary Catheter: No Medications and DC Order Prescriptions: Continued valsartan 80 mg tablet 80 mg PO DAILY Gemtesa 75 mg tablet 75 mg PO DAILY Qty: 30 4RF docusate sodium 100 mg capsule 100 mg PO DAILY ergocalciferol (vitamin D2) 50 mcg (2,000 unit) capsule 50 mcg PO DAILY Saccharomyces boulardii [Florastor] 250 mg capsule 250 mg PO BID loperamide [Imodium A-D] 2 mg capsule 2 mg PO Q4H PRN (Reason: Diarrhea) carboxymethylcellulose sodium [Refresh Liquigel] 1 % drops, liquid gel 1 drp ophthalmic (eye) BID acetaminophen [Tylenol] 325 mg tablet 650 mg PO Q6H MDD 3 GRAMS APAP/24 HOURS PRN (Reason: PAIN/TEMP >100F) bacitracin 500 unit/gram Ointment 1 applic TOPICAL DAILY Rx Instructions: RIGHT ACHILLES AREA, CLEANSE WITH NSS, APPLY BACITRACIN, COVER WITH DRY DRESSING tramadol 50 mg Tablet 50 mg PO Q4H PRN (Reason: PAIN/SEVERE) triamcinolone acetonide 0.1 % Cream 1 applic TOPICAL BID Rx Instructions: APPLY TO BILATERAL LEGS acetaminophen [Tylenol Arthritis Pain] 650 mg Tablet Extended Release 650 mg PO BIDM MDD 3 GRAMS APAP/24 HOURS Rx Instructions: 0430 & 1630 mineral oil Oil 2 ea miscellaneous DIRECTED Rx Instructions: PUT 2 DRPS IN BOTH EARS EVERY 3RD DAY OF THE MONTH. glimepiride 4 mg Tablet 4 mg PO BIDM calcium carbonate 500 mg calcium (1,250 mg) Tablet,Chewable 1,000 mg PO Q1H PRN (Reason: Indigestion) mupirocin 2 % Ointment 1 applic TOPICAL TID Rx Instructions: APPLY TO ABD FOLDS alum-mag hydroxide-simeth [No-Lanta] 200-200-20 mg/5 mL Suspension 60 ml PO Q6H PRN (Reason: Dyspepsia) Rx Instructions: administer between meals and at bedtime epinephrine [EpiPen] 0.3 mg/0.3 mL Auto-Injector 0.3 mg IM DIRECTED PRN (Reason: Allergic Reaction) polyethylene glycol 3350 [Miralax] 17 gram/dose Powder 17 g PO DAILY albuterol sulfate 90 mcg/actuation Hfa Aerosol Inhaler 2 puff INHALATION Q6H PRN (Reason: Shortness Of Breath Or Wheezing) ondansetron 4 mg Tablet,Disintegrating 4 mg PO Q6H PRN (Reason: NAUSEA/VOMITING) clotrimazole 1 % Cream 1 applic TOPICAL BID Rx Instructions: APPLY TO ABD FOLDS vitamin E 268 mg (400 unit) Capsule 268 mg PO DAILY phenol 1.4 % Aerosol,[place] 2 spray MUCOUS MEMBRANE Q8H PRN (Reason: Sore Throat) soap Shampoo 1 ea TOPICAL QPM Rx Instructions: CLEANSE BOTH EYE LIDS fluticasone furoate 27.5 mcg/actuation [place],Suspension 2 spray INTRANASAL DAILY Rx Instructions: into each nostril Biotene Moisturizing Mouth [place],Non-Aerosol 2 spray MUCOUS MEMBRANE Q1H PRN (Reason: Dry Mouth) Rx Instructions: SELF ADMINISTRATION guaifenesin [Mucinex] 600 mg Tablet Extended Release 12hr 600 mg PO Q12H Artificial Tears (cmc) 1 % Drops 2 drp OPB Q2H PRN (Reason: Dry Eyes) Gold Avendano Medicated Body 0.8 % Powder 1 ea TOPICAL BID Rx Instructions: APPLY TO GROIN FOR RASH, MAY KEEP AT BEDSIDE. Ozempic 0.25 mg or 0.5 mg (2 mg/3 mL) Pen Injector 0.5 mg SUBCUT WK Rx Instructions: THURSDAYS diclofenac sodium [Voltaren Arthritis Pain] 1 % Gel 4 g EXT QID Qty: 100 0RF Discharge Orders: Discharge Order (Routine); Ordered 05/04/25 Ordered By: Florinda Read/Other Patient Handouts: ED Shortness of Breath (Dyspnea) Admission Data Admit Date/Time: 05/01/25 13:34 Attending Provider: Michael Garcia Admit Provider: Jason Fan Primary Care Provider: Dwayne Leon III Other Providers: Jason Fan; [place] Other Interventions: Discharge Summary Assessment (RN) Last Done: 05/04/25 12:58 Hospital Stay Data Consultations 05/01/25 13:17 ED Decision to Admit Stat Diagnostic Imagining Performed Chest X-Ray 05/01/25 08:19 HISTORY: Sepsis TECHNIQUE: Portable AP radiograph of the chest. COMPARISON: Chest radiographs dated 04/12/2025. FINDINGS: potline monitor leads overlie the chest. No focal lung consolidation. No pneumothorax or effusion.Top normal heart size. Left-sided aortic arch containing atherosclerotic calcification. Midline trachea. No acute osseous abnormality. Extensive spinal fusion hardware. IMPRESSION: No acute cardiopulmonary findings. Electronically signed by Marty Goddard 05-01-2025 09:20 AM Chest CTA 05/01/25 10:18 HISTORY: Shortness of breath and chest pain TECHNIQUE: CT angiography of the chest was performed with contrast. Coronal and sagittal 3D MIP reconstructions are provided. COMPARISON: Chest CT with contrast dated 04/11/2025. FINDINGS: Lungs: Mild atelectasis at the lung bases. No focal consolidation concerning for pneumonia. No pneumothorax or effusion. The central tracheobronchial tree is patent. Heart/Mediastinum: Normal heart size. No pericardial effusion. Dense mitral annular calcification. Mild aortic valvular calcification. 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 2.1 cm nodule extending inferiorly from the thyroid isthmus requires further evaluation with ultrasound. Thoracic esophagus is unremarkable. Small hiatal hernia. Vasculature: Evaluation of the segmental and subsegmental pulmonary arteries is limited by respiratory motion artifact. No evidence of acute pulmonary embolism within the limitations of the study. Mildly dilated main pulmonary artery measuring 3.6 cm in diameter, which could be seen with pulmonary arterial hypertension. Mildly dilated ascending thoracic aorta measuring 4.1 cm in diameter on series 2 image 65. Mild atherosclerotic vascular disease involving the aorta and arch vessels. Soft Tissues: Soft tissues of the chest wall appear unremarkable. Upper Abdomen: Cortical cyst along the superior pole of the left kidney measuring 4.3 cm in diameter is partially imaged. The included upper abdomen is otherwise unremarkable. Bones: Degenerative changes of the shoulders and spine. Partially imaged lumbar and cervical fusion hardware. No acute osseous abnormality. IMPRESSION: * No evidence of acute pulmonary embolism. * Mildly dilated main pulmonary artery, which could be seen with pulmonary arterial hypertension. * Mildly dilated ascending thoracic aorta measuring 4.1 cm in diameter. 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 Aortic valvular and mitral annular calcification. * 2.1 cm nodule extending inferiorly from the thyroid isthmus. Further evaluation is recommended with nonemergent thyroid ultrasound. * Additional chronic and/or incidental findings as detailed above. ACT 112: Positive. There are findings on this exam that require communication between the performing entity and the patient following Patient Test Result Information Act ([place] ACT 112) guidelines. Electronically signed by Marty Goddard 05-01-2025 11:27 AM Chest X-Ray 05/03/25 14:55 XR chest 2V PA/lateral CLINICAL HISTORY: Shortness of breath. COMPARISON STUDY: Chest radiograph and chest CT May 01, 2025. FINDINGS: Postoperative findings within the spine are incidentally noted. Lung volumes are normal. Lungs are clear. There is no pneumothorax or pleural effusion. Cardiac size is normal. Mediastinal contours are normal. There is no evidence for pulmonary edema. IMPRESSION: No acute cardiopulmonary findings. ACT 112: Negative or not required by law. Electronically signed by: Thomas Carrillo M.D. 05/03/2025 3:43 PM Pending Results Patient Have Any Pending Studies at Discharge: No Discharge Instructions Given to Patient (Per Discharging Provider) Ebonie, You were admitted to the hospital with hypoxia (low oxygen level). You had multiple imaging studies done including 2 chest x-rays and 1 CT scan of your chest which did not show any acute processes going onno pneumonia, blood clots, fluid in your lungs, etc. Your respiratory panel was negative. You were given IV antibiotics for a possible UTI, however after further conversations, it was suspected to be asymptomatic bacteriuria rather than a true UTI. Asymptomatic bacteriuria is the presence of bacteria in your urine without any signs or symptoms of a UTI. It is unclear what caused your low oxygen level initially. However, now you are stable on room air and have clear lung sounds. Upon discharge from the hospital: * You can use your albuterol inhaler at home for any shortness of breath or whe ezing. * Continue your home medications as prescribed. * Follow-up with your PCP in 1-2 weeks. Please return to the hospital if you experience any of the following: Difficulty breathing, shortness of breath, chest pain, heart palpitations, lightheadedness, dizziness, passing out, new or worsening confusion, inability to tolerate oral intake, or any other symptoms concerning for you. It was a pleasure taking care of you while you were in the hospital! Total Time Total Time Spent Total Time Spent (In Minutes): Greater than 30 minutes spent completing this discharge process including direct patient care, medication reconciliation, documentation, review of labs and images, and coordination of care. Coding Level of Care Code 32879 INP/OBS DISCH >30 MIN Diagnoses URI (upper respiratory infection) J06.9 URI type: unspecified viral URI Acute hypoxic respiratory failure J96.01 DM type 2 (diabetes mellitus, type 2) E11.9
--- NOTE | 2025-05-06 22:26 | Electrocardiogram Report ---
Test Reason : Blood Pressure : */* mmHG Vent. Rate : 85 BPM Atrial Rate : 85 BPM P-R Int : 166 ms QRS Dur : 80 ms QT Int : 378 ms P-R-T Axes : 79 39 81 degrees QTcB Int : 449 ms Normal sinus rhythm Low voltage QRS Borderline ECG When compared with ECG of 01-May-2025 08:17, Minimal criteria for Anterior infarct are no longer Present Confirmed by Gerardo Guerra ([id number]) on 05/06/2025 10:26:40 PM Referred By: REFERRED SELF Confirmed By: Gerardo Guerra
== END 2025-05-04 16:38 | DRG 152 ==
LOC: ED 08:11 → 3N 13:34 → SUATTDRO 13:34 → 3N 17:29